=== PATIENT | male | born 1980 | race Caucasian/White ===

== ENCOUNTER 2024-07-15 03:58 | Emergency (ER) | payer SELFPAY ==
[2024-07-15] MEDS: Ketorolac 30 MG/ML SDV IM ONE (06:07)
[2024-07-15] MEDS: Acetaminophen 500 MG Tab PO ONE (06:08)
== END 2024-07-15 08:49 | disposition home or self-care (01) ==
LOC: MW.ED 03:58
DX: S93.402A Sprain of unspecified ligament of left ankle, initial encounter (principal); F10.920 Alcohol use, unspecified with intoxication, uncomplicated; X58.XXXA Exposure to other specified factors, initial encounter
CPT/HCPCS: 29515; 70450; 70450-26; 73590-26-LT; 73590-LT; 73610-26-LT; 73610-LT; 73620-26-LT; 73620-LT; 99284; 99284-25; A9270-GY; J1885

== ENCOUNTER 2024-07-19 09:05 | Day surgery (SDC) | payer OTHER ==
[~2024-07-19 09:05] MED LIST: Albuterol 0.083% 2.5 MG/3 ML Neb Soln NEB PRN; Metoclopramide 10 MG/2 ML SDV IVPUSH PRN; Morphine 2 MG/ML SYRINGE IVPUSH PRN; Naloxone 0.4 MG/ML SDV IVPUSH PRN; Ondansetron 4 MG/2 ML SDV IVPUSH PRN; Phenylephrine HCl In 0.9% NaCl 1 MG/10 ML Syringe IVPUSH PRN; ceFAZolin 2 GM in Sodium Chloride 0.9% 50 ML IV ONE; fentaNYL 50 MCG/ML SDV IVPUSH PRN
[2024-07-19] MEDS: Lactated Ringers 1,000 ML IV SCH (09:47)
[2024-07-19] MEDS ORDERED: Ropivacaine 0.5% 5 MG/ML 30 ML SDV ONE (10:37)
[2024-07-19] MEDS ORDERED: fentaNYL 100 MCG/2 ML SDV ONE (10:47)
[2024-07-19] MEDS ORDERED: Ondansetron 4 MG/2 ML SDV ONE (11:05)
[2024-07-19] MEDS ORDERED: Lidocaine 2% 5 ML SDV ONE (11:05)
[2024-07-19] MEDS ORDERED: Propofol 200 MG/20 ML SDV ONE (11:05)
[2024-07-19] MEDS ORDERED: ceFAZolin 1 GM Vial ONE (11:32)
[2024-07-19] MEDS ORDERED: Glycopyrrolate 0.2 MG/ML SDV ONE (11:37)
[2024-07-19] MEDS ORDERED: ePHEDrine 50 MG/ML SDV ONE (11:40)
[2024-07-19] MEDS: HYDROmorphone 1 MG/ML Syringe IVPUSH PRN (13:12)
== END 2024-07-19 14:40 | disposition home or self-care (01) ==
LOC: MW.SDS 09:05
PROVIDERS: ATTEND Orthopaedic Surgery
DX: S82.62XA Displaced fracture of lateral malleolus of left fibula, initial encounter for closed fracture (principal); Z87.891 Personal history of nicotine dependence; X58.XXXA Exposure to other specified factors, initial encounter
CPT/HCPCS: 27792; 27829; 76000; C1713; J0131; J0690; J1171; J1596; J2405; J2704; J2795; J3010; J7120; J3490